=== PATIENT | female | born 1990 | race Two or more races ===

== ENCOUNTER 2017-02-16 11:55 | Observation (INO) | payer SELFPAY ==
[2017-02-16 13:44] LABS: Urine Bilirubin Negative (Negative); Urine Blood Negative /uL (Negative); Urine Color Yellow (Yellow); Urine Glucose Normal (Normal); Urine Ketone Negative (Negative); Urine Nitrite Negative (Negative); Urine RBC 1 /hpf (0 - 4); Urine Squamous Epithelial Cell FEW /hpf (<5); Urine Urobilinogen Normal (Negative)
== END 2017-02-16 13:55 | disposition home or self-care (01) | DRG 781 ==
LOC: LDRP 11:55
PROVIDERS: ADMIT Specialist; ATTEND Specialist
DX: O26.892 Other specified pregnancy related conditions, second trimester (principal); R10.32 Left lower quadrant pain; Z3A.20 20 weeks gestation of pregnancy
CPT/HCPCS: 59025; 81001; G0378

== ENCOUNTER 2021-02-20 08:50 | Inpatient (IN) | payer MEDICAID ==
[~2021-02-20] VITALS: Ht 167.6 cm; Wt 71.7 kg
[2021-02-20] MEDS ORDERED: PREN-96 PO (10:36)
[2021-02-20] MEDS ORDERED: LIDOCAINE 2%HCL (LOCAL ANESTH.) INJ 20ML MDV IJ PRN (12:45)
[2021-02-20] MEDS ORDERED: miSOPROStol 100 mcg TAB SL PRN (12:45)
[2021-02-20] MEDS ORDERED: miSOPROStol 100 mcg TAB PR PRN (12:45)
[2021-02-20] MEDS ORDERED: LACT. RINGERS/OXYTOCIN 20UNITS 500 ML IV ONE ×2 (12:45→13:15)
[2021-02-20] MEDS ORDERED: ONDANSETRON HCL 4 MG/2 ML VIAL IV PRN (12:45)
[2021-02-20] MEDS ORDERED: TERBUTALINE SULFATE 1 MG/ML 1ML VIAL SC PRN (12:45)
[2021-02-20] MEDS ORDERED: CARBOPROST TROMETHAMINE 250 MCG/1ML VIAL IM PRN (12:45)
[2021-02-20] MEDS ORDERED: METHYLERGONOVINE MALEATE 0.2 MG/ML AMP IM PRN (12:45)
[2021-02-20] MEDS: LACTATED RINGER'S 1,000 ML IV SCH ×3 (13:31→16:43)
[2021-02-20] MEDS: WITCH HAZEL-GLYCERIN PAD TOP PRN ×2 (13:50→19:55)
[2021-02-20] MEDS: PHISODERM TOP SOLN 240ML BTL TOP PRN ×2 (13:50→19:55)
[2021-02-20] MEDS: DERMOPLAST 60ML BOTTLE TOP PRN ×2 (13:52→19:55)
[2021-02-20 13:58] LABS: Basophils # (auto) 0 10 ^3/uL (0-0.2); Basophils % (auto) 0.3 % (0.0-2.0); Eosinophils # (auto) 0 10 ^3/uL (0-0.8); Eosinophils % (auto) 0.2 % (0.0-7.0); Hematocrit 38.2 % (36.0-46.0); Hemoglobin 12.7 g/dL (12.2-16.2); Lymphocytes # (auto) 1.6 10 ^3/uL (0.4-5.4); Lymphocytes % (auto) 12.1 % (10.0-50.0); Mean Corpuscular Hemoglobin 28.6 pg (28.0-32.0); Mean Corpuscular Hgb Conc. 33.2 g/dL (32.0-36.0); Mean Corpuscular Volume 85.9 fL (80.0-100.0); Monocytes # (auto) 0.6 10 ^3/uL (0-1.3); Monocytes % (auto) 4.1 % (0.0-12.0); Neutrophils # (auto) 11.3 10 ^3/uL (1.6-8.6); Neutrophils % (auto) 83.3 % (37.0-80.0); Red Blood Cells 4.45 10^6/uL (4.0-5.20); Red Cell Distribution Width 14.2 % (11.8-14.3); White Blood Cell 13.6 10^3/uL (4.4-10.8)
[2021-02-20 14:15] LABS: Albumin 2.9 g/dL (3.4-5.0); BUN/Creatinine Ratio 15.4; Calcium 8.8 mg/dL (8.5-10.1); INR 0.88 (0.9-1.15); Partial Thromboplastin Time 27.4 sec (23.0-31.2); Potassium 3.8 mmol/L (3.5-5.1)
[2021-02-20 14:18] LABS: Bilirubin, Total 0.3 mg/dL (0.2-1.0); Total Protein 6.7 g/dL (6.4-8.2)
[2021-02-20 14:18] LABS: Alcohol, Urine < 3.0 mg/dL (0-10); Amphetamine Screen, Urine NEGATIVE (NEGATIVE); Barbiturate Scree,Urine NEGATIVE (NEGATIVE); Benzodiazephine Screen, Urine NEGATIVE (NEGATIVE); Cannabinoid Screen, Urine NEGATIVE (NEGATIVE); Cocaine Screen, Urine NEGATIVE (NEGATIVE); Opiate Scree,Urine NEGATIVE (NEGATIVE); Phencyclidine Screen, Urine NEGATIVE (NEGATIVE)
[2021-02-20 14:31] LABS: Urine Bacteria FEW /hpf (None Seen); Urine Blood 1+ /uL (Negative); Urine Specific Gravity 1.013 (1.001-1.035); Urine WBC 29 /hpf (0 - 5); Urine WBC Clumps PRESENT /hpf (None Seen)
[2021-02-20] MEDS ORDERED: ROPIVACAINE HCL 200 ML EPI SCH (14:45)
[2021-02-20] MEDS ORDERED: ePHEDrine SULFATE 50 MG/ML AMP IV ONE (14:45)
[2021-02-20] MEDS ORDERED: LIDOCAINE HCL 2 %PF INJ 10ML AMP IJ ONE (14:45)
[2021-02-20] MEDS ORDERED: LACTATED RINGER'S 500 ML IV ONE (14:45)
[2021-02-20] MEDS ORDERED: NALOXONE HCL 0.4 MG/ML VIAL IV ONE (14:45)
[2021-02-20] MEDS ORDERED: fentaNYL CITRATE 100 MCG/2 ML VL IV ONE (14:45)
[2021-02-20] MEDS: LACT. RINGERS/OXYTOCIN 20UNITS 1,000 ML IV SCH ×2 (17:28→19:53)
[2021-02-20] MEDS ORDERED: DIPHENOXYLATE W/ATROPINE 2.5 MG TAB PO SCH (22:00)
[2021-02-20 22:56] VITALS: BP 111/56
[2021-02-20] MEDS: IBUPROFEN 600 MG TAB PO PRN (23:29)
[2021-02-21 03:00] VITALS: BP 100/58
[2021-02-21] MEDS: IBUPROFEN 600 MG TAB PO PRN ×3 (06:45→13:35)
[2021-02-21 07:01] VITALS: BP 106/58
[2021-02-21 10:44] VITALS: BP 118/67
[2021-02-21 15:15] VITALS: BP 122/70
[2021-02-21 19:30] VITALS: BP 119/65
[2021-02-22 05:07] LABS: RPR Non Reactive (Non Reactive)
== END 2021-02-21 21:36 | disposition home or self-care (01) | DRG 560 ==
LOC: LDRP 08:50 → OBSVTOIN 08:50 → LDRP 12:28
PROVIDERS: ADMIT Specialist; ATTEND Specialist
PROC: 10E0XZZ Delivery of Products of Conception, External Approach (ICD-10-PCS; principal; 2021-02-20)
PROC: 0HQ9XZZ Repair Perineum Skin, External Approach (ICD-10-PCS; 2021-02-20)
PROC: 3E0R3BZ Introduction of Anesthetic Agent into Spinal Canal, Percutaneous Approach (ICD-10-PCS; 2021-02-20)
PROC: 00HU33Z Insertion of Infusion Device into Spinal Canal, Percutaneous Approach (ICD-10-PCS; 2021-02-20)
DX: O69.81X0 Labor and delivery complicated by cord around neck, without compression, not applicable or unspecified (principal); O70.0 First degree perineal laceration during delivery; Z20.822 Contact with and (suspected) exposure to COVID-19; Z3A.40 40 weeks gestation of pregnancy; Z37.0 Single live birth
CPT/HCPCS: 36415; 59025; 59409; 62282; 76818; 80053; 80307; 81001; 81002; 85025; 85610; 85730; 86592; 86850; 86900; 86901; 87426; 94760; 96360; 96361; 96365; 96366; G0378; J2590